=== PATIENT | male | born 1990 | race Caucasian/White ===

== ENCOUNTER 2017-02-25 00:08 | Emergency (ER) | payer OTHER ==
--- NOTE | ~2017-02-25 | CR127 ---
[facility]. [facility] A Service of [facility] & [facility] RADIOLOGY TEXT RESULTS PATIENT: NIC CLAIRE LOCATION: SED : [birth year] UNIT #: [id number] AGE: [address]: Juan Carlos Lynch MD SEX: M ORDER DR: [id number] [place] [address] [id number] E MR#: [id number] Acc #: [id number] NAME: NIC CLAIRE : 1990 SEX: M STUDY DATE/TIME: 02/25/2017 0:49 UNIT: SED ROOM: STUDY DESCRIPTION: CR Foot Complete Min 3 View Rt Attending Physician: Juan Carlos Lynch M.D. Ordering Physician: Juan Carlos Lynch M.D. Primary Care Physician: No Primary Care Physician MEDICAL IMAGING REPORT This report is preliminary unless electronic signature is present. EXAM Right foot series INDICATIONS Right foot pain and toe laceration after an injury tonight. PROCEDURE 3 views of the right foot. COMPARISON None FINDINGS No visible fracture. No radiodense foreign body. IMPRESSION No acute findings. Dictated by... Patrick Pyle M.D. THIS IS AN ELECTRONICALLY VERIFIED REPORT Patrick Pyle M.D. at 02/25/2017 9:54 PM Delio TD: 02/25/2017 12:05 JOB #: [id number] MEDICAL IMAGING REPORT Page 1 of 1
[~2017-02-25 00:08] MED LIST: AMOXICILLIN875 MG PO; CORTISPORIN-TC10 M1 AU; LORTAB 5/500 TA1 TA1 PO; NO MEDICATIONS; PEN-VEE K PO; TYLENOL #3 PO; VOLTAREN75 MG PO
== END 2017-02-25 01:19 | disposition home or self-care (01) ==
LOC: SED 00:08
DX: S90.211A Contusion of right great toe with damage to nail, initial encounter (principal); F17.200 Nicotine dependence, unspecified, uncomplicated; W22.8XXA Striking against or struck by other objects, initial encounter; Y92.009 Unspecified place in unspecified non-institutional (private) residence as the place of occurrence of the external cause
CPT/HCPCS: 73630; 99283

== ENCOUNTER 2017-03-20 02:11 | Emergency (ER) | payer OTHER ==
[~2017-03-20] VITALS: Ht 185.4 cm; Wt 81.6 kg
--- NOTE | ~2017-03-20 | CR20 ---
[facility]. [facility] A Service of [facility] & [facility] RADIOLOGY TEXT RESULTS PATIENT: NIC CLAIRE LOCATION: SED : [birth year] UNIT #: [id number] AGE: [address]: Adalberto Christine MD SEX: M ORDER DR: [id number] [place] [address] [id number] E MR#: [id number] Acc #: [id number] NAME: NIC CLAIRE : 1990 SEX: M STUDY DATE/TIME: 03/20/2017 2:49 UNIT: SED ROOM: STUDY DESCRIPTION: CR Ankle Min 3 Views Lt Attending Physician: Adalberto Christine M.D. Ordering Physician: Adalberto Christine M.D. Primary Care Physician: No Primary Care Physician MEDICAL IMAGING REPORT This report is preliminary unless electronic signature is present. EXAM Left ankle series INDICATIONS Left ankle pain after injury tonight. PROCEDURE 3 views left ankle. COMPARISON None FINDINGS No acute fracture or dislocation. IMPRESSION No acute findings. Dictated by... Patrick Pyle M.D. THIS IS AN ELECTRONICALLY VERIFIED REPORT Patrick Pyle M.D. at 03/20/2017 9:52 PM Delio TD: 03/20/2017 11:31 JOB #: [id number] MEDICAL IMAGING REPORT Page 1 of 1
[2017-03-20] MEDS ORDERED: NAPROXEN375 MG PO (02:23)
== END 2017-03-20 03:44 | disposition home or self-care (01) ==
LOC: SED 02:11
DX: S90.02XA Contusion of left ankle, initial encounter (principal); F17.200 Nicotine dependence, unspecified, uncomplicated; Z91.030 Bee allergy status; W22.8XXA Striking against or struck by other objects, initial encounter; Y92.098 Other place in other non-institutional residence as the place of occurrence of the external cause
CPT/HCPCS: 73610; 99283